=== PATIENT | male | born 1930 | race Caucasian/White ===

== ENCOUNTER 2020-07-25 09:33 | Emergency (ER) | payer MEDICARE ==
[~2020-07-25] VITALS: Ht 172.7 cm; Wt 63.0 kg
--- NOTE | 2020-07-25 09:49 | NUR ---
PATIENT TO IMAGING FROM TRIAGE.
--- NOTE | 2020-07-25 10:17 | NUR ---
bilateral bp reveal no bp difference. pt on cardiac, nibp, and o2 monitoring in place.
[2020-07-25 10:32] LABS: BASOPHILS % (AUTO) 1 % (0-1); EOSINOPHILS % (AUTO) 0 % (1-7); LYMPHOCYTES % (AUTO) 3 % (22-44); MEAN CORPUSCULAR HEMOGLOBIN 28.2 pg (27.5-34.5); MEAN CORPUSCULAR HGB CONC 32.7 g/dL (33.2-36.2); MEAN PLATELET VOLUME 8.7 fL (7.4-10.4); MONOCYTES % (AUTO) 8 % (2-9); NEUTROPHILS % (AUTO) 89 % (42-75); PLATELET COUNT 272 x10^3/uL (130-400); RED BLOOD COUNT 4.57 x10^6/uL (4.38-5.82)
[2020-07-25 10:40] LABS: ALANINE AMINOTRANSFERASE 14 U/L (12-78); ALBUMIN 2.7 g/dL (3.4-5.0); ANION GAP 6 mmol/L (5-15); CALCIUM 8.7 mg/dL (8.5-10.1); CHLORIDE 104 mmol/L (98-107)
[2020-07-25 10:42] LABS: MD NO
[2020-07-25 10:48] LABS: ALKALINE PHOSPHATASE 58 U/L (45-117); BILIRUBIN,TOTAL 1.1 mg/dL (0.2-1.0); CREATININE 1.35 mg/dL (0.7-1.3); TOTAL PROTEIN 6.6 g/dL (6.4-8.2); TROPONIN I < 0.015 ng/mL (0.000-0.045)
[2020-07-25] MEDS ORDERED: METOPROLOL 1 MG/ML, 5ML IVPush PRN (11:00)
--- NOTE | 2020-07-25 11:23 | NUR ---
PT RESTING COMFORTABLY NS BOLUS OF 500 ML COMPLETED AND PT HR DOWN TO 90'S. MD MADE AWARE AND POC TO WITHJIGNESH YNA AT THIS TIME.
[2020-07-25] MEDS ORDERED: SODIUM CHLORIDE 0.9%, 500ML IVBOLUS ONE ×2 (11:30→12:00)
--- NOTE | 2020-07-25 11:30 | NUR ---
POC FOR CT DUE TO MASS FOUND ON X RAY. PT AGREES WITH POC.
--- NOTE | 2020-07-25 11:59 | NUR ---
PT BACK FROM CT NOW
[2020-07-25] MEDS ORDERED: OMNIPAQUE 350 MG/ML, 75ML BOTTLE ONE (12:03)
[2020-07-25] MEDS ORDERED: METOPROLOL TARTRATE 25 MG TAB PO ONE ×2 (12:30→13:30)
[2020-07-25] MEDS ORDERED: METOPROLOL TARTRATE 25 MG TAB ONE (13:28)
[2020-07-25 14:34] VITALS: BP 115/75
== END 2020-07-25 15:02 | disposition home or self-care (01) ==
LOC: ED 10:42
DX: C80.1 Malignant (primary) neoplasm, unspecified (principal); C78.02 Secondary malignant neoplasm of left lung; I48.0 Paroxysmal atrial fibrillation; I10 Essential (primary) hypertension; R91.8 Other nonspecific abnormal finding of lung field; M54.5 Low back pain; K08.89 Other specified disorders of teeth and supporting structures
CPT/HCPCS: 36415; 71045; 71260; 80053; 82962; 83735; 84484; 85025; 93005; 99285; J7040; Q9967

== ENCOUNTER → 2020-08-12 | Outpatient (CLI) | payer MEDICARE ==
[~2020-08-12] MED LIST: AMLO-150 PO; ASPI81TA45 PO; LOSA50TA14 PO; RIVA20TA PO
== END | disposition home or self-care (01) ==
LOC: RAD 12:20
PROVIDERS: ATTEND Internal Medicine
DX: Z01.818 Encounter for other preprocedural examination (principal); R91.8 Other nonspecific abnormal finding of lung field; J43.9 Emphysema, unspecified; Z20.822 Contact with and (suspected) exposure to COVID-19
CPT/HCPCS: 71250; U0003

== ENCOUNTER 2020-08-16 07:50 | Day surgery (SDC) | payer MEDICARE ==
[~2020-08-16] VITALS: Ht 172.7 cm; Wt 61.2 kg
[2020-08-16 08:44] VITALS: BP 154/96
[2020-08-16] MEDS ORDERED: LACTATED RINGERS 1,000 ML IV SCH (09:00)
[2020-08-16] MEDS ORDERED: CHLORHEXIDINE 15 ML UDC PO ONE (09:00)
[2020-08-16] MEDS ORDERED: ALBUTEROL/IPRATROPIUM 2.5MG/0.5MG, 3 ML NPPB PRN (10:00)
[2020-08-16] MEDS ORDERED: LABETALOL 5MG/ML, 20ML IV PRN (10:00)
[2020-08-16] MEDS ORDERED: HALOPERIDOL 5 MG/ML IV PRN (10:00)
[2020-08-16] MEDS ORDERED: ACETAMINOPHEN 325 MG TABLET PO PRN (10:00)
[2020-08-16] MEDS ORDERED: hydrALAzine 20 MG/ML, 1ML IV PRN (10:00)
[2020-08-16] MEDS ORDERED: PROMETHAZINE 25 MG/ML, 1ML IVPush PRN (10:00)
[2020-08-16] MEDS ORDERED: METOCLOPRAMIDE 5 MG/ML, 2ML IVPush PRN (10:00)
[2020-08-16] MEDS ORDERED: DIPHENHYDRAMINE 50 MG/ML, 1ML IVPush PRN (10:00)
[2020-08-16] MEDS ORDERED: ONDANSETRON 2MG/ML, 2ML IVPush PRN (10:00)
[2020-08-16] MEDS ORDERED: HYDROmorphone 1 MG/ML, 1ML INJ IVPush PRN (10:00)
[2020-08-16] MEDS ORDERED: EPHEDRINE 50 MG/ML, 1ML IVPush PRN (10:00)
[2020-08-16] MEDS ORDERED: METOPROLOL 1 MG/ML, 5ML IV PRN (10:00)
[2020-08-16] MEDS ORDERED: OXYcodone 5 MG/5 ML ORAL.SOL UDC PO PRN (10:00)
[2020-08-16] MEDS ORDERED: ALBUTEROL SULFATE 2.5 MG/3 ML NPPB PRN (10:00)
[2020-08-16] MEDS ORDERED: FENTANYL PF 100 MCG/2ML IV PRN (10:00)
[2020-08-16] MEDS ORDERED: FENTANYL PF 100 MCG/2ML ONE (10:09)
[2020-08-16] MEDS ORDERED: GLYCOPYRROLATE 0.2MG/1ML, 5ML ONE (11:15)
[2020-08-16] MEDS ORDERED: PROPOFOL 10 MG/ML, 20ML ONE (11:15)
[2020-08-16] MEDS ORDERED: DEXAMETHASONE 4 MG/ML, 1ML ONE (11:15)
[2020-08-16] MEDS ORDERED: ROCURONIUM 10 MG/ML,10ML ONE (11:15)
[2020-08-16] MEDS ORDERED: ONDANSETRON 2MG/ML, 2ML ONE (11:15)
[2020-08-16] MEDS ORDERED: PHENYLEPHRINE 10 MG/ML ONE (11:15)
[2020-08-16] MEDS ORDERED: NEOSTIGMINE 1 MG/ML, 10ML ONE (11:15)
[2020-08-16] MEDS ORDERED: SUCCINYLCHOLINE 20 MG/ML, 10ML ONE (11:15)
== END 2020-08-16 15:55 | disposition home or self-care (01) ==
LOC: OUT 07:50
PROVIDERS: ATTEND Internal Medicine
DX: R91.8 Other nonspecific abnormal finding of lung field (principal); J43.9 Emphysema, unspecified; I10 Essential (primary) hypertension; I48.91 Unspecified atrial fibrillation; I34.9 Nonrheumatic mitral valve disorder, unspecified; Z79.01 Long term (current) use of anticoagulants; Z79.82 Long term (current) use of aspirin; Z79.899 Other long term (current) drug therapy; Z87.891 Personal history of nicotine dependence; Z98.890 Other specified postprocedural states; Z80.1 Family history of malignant neoplasm of trachea, bronchus and lung; Z82.49 Family history of ischemic heart disease and other diseases of the circulatory system
CPT/HCPCS: 31624; 31627; 31628; 71045; 88112; 88172; 88177; 88305; 88333; 88334; J0330; J1100; J2370; J2405; J2704; J2710; J3010; J7120; 31629; 76000; 88173

== ENCOUNTER → 2020-11-15 | Outpatient (CLI) | payer MEDICARE ==
[2020-11-15 10:15] LABS: BASOPHILS % (AUTO) 3 % (0-1); EOSINOPHILS % (AUTO) 1 % (1-7); LYMPHOCYTES % (AUTO) 18 % (22-44); MEAN CORPUSCULAR HEMOGLOBIN 28.9 pg (27.5-34.5); MEAN CORPUSCULAR HGB CONC 33.4 g/dL (33.2-36.2); MEAN PLATELET VOLUME 8.8 fL (7.4-10.4); MONOCYTES % (AUTO) 11 % (2-9); NEUTROPHILS % (AUTO) 68 % (42-75); PLATELET COUNT 143 x10^3/uL (130-400); RED BLOOD COUNT 4.71 x10^6/uL (4.38-5.82); RED CELL DISTRIBUTION WIDTH 14.8 % (9.4-14.8)
[2020-11-15 10:26] LABS: ANION GAP 3 mmol/L (5-15); CALCIUM 8.8 mg/dL (8.5-10.1); CHLORIDE 108 mmol/L (98-107); CREATININE 0.96 mg/dL (0.7-1.3)
== END | disposition home or self-care (01) ==
LOC: LAB 09:59
PROVIDERS: ATTEND Internal Medicine Clinical Cardiac Electrophysiology
DX: E11.9 Type 2 diabetes mellitus without complications (principal); B07.8 Other viral warts; E55.9 Vitamin D deficiency, unspecified; E56.8 Deficiency of other vitamins; E78.00 Pure hypercholesterolemia, unspecified; E78.2 Mixed hyperlipidemia; I10 Essential (primary) hypertension; I34.9 Nonrheumatic mitral valve disorder, unspecified; H61.21 Impacted cerumen, right ear; H61.92 Disorder of left external ear, unspecified
CPT/HCPCS: 36415; 80048; 85025

== ENCOUNTER 2020-11-22 19:25 | Emergency (ER) | payer MEDICARE ==
[~2020-11-22] VITALS: Ht 174 cm; Wt 57.0 kg
[2020-11-22] MEDS ORDERED: SODIUM CHLORIDE FLUSH 10ML SYR IVF ONE (20:00)
[2020-11-22] MEDS ORDERED: SODIUM CHLORIDE 0.9% 1,000ML IVBOLUS ONE (20:00)
[2020-11-22] MEDS ORDERED: OMNIPAQUE 350 MG/ML, 100ML BOTTLE ONE (20:00)
[2020-11-22 20:30] LABS: MEAN CORPUSCULAR HEMOGLOBIN 28.4 pg (27.5-34.5); MEAN CORPUSCULAR HGB CONC 33.4 g/dL (33.2-36.2); MEAN PLATELET VOLUME 9.6 fL (7.4-10.4); PLATELET COUNT 92 x10^3/uL (130-400); RED BLOOD COUNT 4.87 x10^6/uL (4.38-5.82)
[2020-11-22 20:43] LABS: ALANINE AMINOTRANSFERASE 28 U/L (12-78); ALBUMIN 2.8 g/dL (3.4-5.0); ANION GAP 6 mmol/L (5-15); CALCIUM 8.1 mg/dL (8.5-10.1); CHLORIDE 105 mmol/L (98-107); CREATININE 0.99 mg/dL (0.7-1.3)
--- NOTE | 2020-11-22 20:43 | NUR ---
Pt arrived with c/o dizziness x5days that was worse today. Pt states that he is not expierencing any lightheadedness or dizziness at the moment. Connected to all monitors, changed into gown, siderails up x2, positioned for comfort, call light in reach, IV access established, VSS, WCTM
[2020-11-22 20:47] LABS: ALKALINE PHOSPHATASE 66 U/L (45-117); BILIRUBIN,TOTAL 0.7 mg/dL (0.2-1.0); TOTAL PROTEIN 6.7 g/dL (6.4-8.2); TROPONIN I < 0.015 ng/mL (0.000-0.045)
[2020-11-22 21:39] LABS: BAND#(MANUAL) 0.13 x10^3/uL; BANDS%(MANUAL) 6 % (0-7); BASOS#(MANUAL) 0.02 x10^3/uL (0-0.1); BASOS% (MANUAL) 1 % (0-1); LYMPH#(MANUAL) 0.37 x10^3/uL (1-3.4); LYMPHS% (MANUAL) 17 % (22-44); MONOS% (MANUAL) 9 % (2-9); REACTIVE LYMPHS # (MANUAL) 0.02 x10^3/uL (0-0); REACTIVE LYMPHS % (MANUAL) 1 % (0-0); SEG#(MANUAL) 1.45 x10^3/uL (1.8-6.8); SEGS% (MANUAL) 66 % (42-75)
[2020-11-22 21:41] LABS: ANISOCYTOSIS 1+
[2020-11-22 21:42] LABS: <PLATELET ESTIMATE> DECREASED; <PLT MORPHOLOGY> NORMAL PLT MORPH
[2020-11-22 21:43] LABS: CRENATED 1+; OVALOCYTES 1+
[2020-11-22 21:55] VITALS: BP 133/80
--- NOTE | 2020-11-22 21:59 | NUR ---
Pt fmaily memebers at bedside per request
--- NOTE | 2020-11-22 22:09 | NUR ---
Pt reports burning with urination when providing UA, NADN
[2020-11-22 22:23] LABS: MICROSCOPIC NOT IND
== END 2020-11-22 23:08 | disposition home or self-care (01) ==
LOC: ED 22:07
DX: I48.20 Chronic atrial fibrillation, unspecified (principal); R42 Dizziness and giddiness; Z79.01 Long term (current) use of anticoagulants; D72.819 Decreased white blood cell count, unspecified; I10 Essential (primary) hypertension
CPT/HCPCS: 36415; 71260; 80053; 81003; 83735; 84443; 84484; 85025; 93005; 99285; J7030; Q9967